=== PATIENT | female | born 1955 | race Caucasian/White ===

== ENCOUNTER 2021-06-04 14:42 | Day surgery (SDC) | payer MEDICARE, OTHER ==
[2021-05-30 09:32] LABS: ALBUMIN 3.9 G/DL (3.4-5.0); ANION GAP 6 (8-16); BLOOD UREA NITROGEN 16 MG/DL (7-18); BUN/CREATININE RATIO 20.8 (6.6-38.0); CALCIUM 9.7 MG/DL (8.5-10.1); CHLORIDE 100 MMOL/L (99-107); CREATININE 0.77 MG/DL (0.40-0.90); GLUCOSE 111 MG/DL (70-104); POTASSIUM 3.7 MMOL/L (3.5-5.1); SODIUM 136 MMOL/L (135-145); TOTAL CARBON DIOXIDE 30.3 MMOL/L (24-32); eGFR 75 ML/MIN
[2021-05-30 09:36] LABS: APTT 27 SECONDS (22-32)
[2021-05-30 09:40] LABS: BASOPHILS % (AUTO) 0.8 % (0-1); EOSINOPHILS # (AUTO) 0.1 X10'3 (0-0.9); EOSINOPHILS % (AUTO) 1.7 % (0-6); HEMATOCRIT 38.1 % (35.0-45.0); HEMOGLOBIN 12.9 g/dl (12.0-16.0); LYMPHOCYTES # (AUTO) 1.4 X10'3 (1.1-4.8); LYMPHOCYTES % (AUTO) 22.5 % (21-51); MEAN CORPUSCULAR HEMOGLOBIN 30.9 PG (27.0-31.0); MEAN CORPUSCULAR HGB CONC 33.8 g/dL (33.0-36.5); MEAN CORPUSCULAR VOLUME 91.4 FL (78-98); MEAN PLATELET VOLUME 7.7 FL (7.4-10.4); MONOCYTES # (AUTO) 0.6 X10'3 (0-0.9); MONOCYTES % (AUTO) 9.7 % (2-12); NEUTROPHILS % (AUTO) 65.3 % (42-75); PLATELET COUNT 235 X10'3 (140-440); RED BLOOD COUNT 4.17 X10'6 (4.20-5.60); RED CELL DISTRIBUTION WIDTH 12.9 % (11.5-14.5); WHITE BLOOD COUNT 6.2 X10'3 (4.5-11.0)
[~2021-06-04] VITALS: Ht 167.6 cm; Wt 82.7 kg
[2021-06-04 15:00] VITALS: BP 128/107
[2021-06-04] MEDS ORDERED: diphenhydrAMINE 25mg capsule PO PRN (15:00)
[2021-06-04] MEDS ORDERED: normal saline 1,000 ML IV SCH (15:00)
[2021-06-04] MEDS ORDERED: LORazepam 0.5 MG tablet PO PRN (15:00)
[2021-06-04] MEDS ORDERED: ATOR20TA66 PO (15:17)
[2021-06-04] MEDS ORDERED: ACET-890 PO (15:17)
[2021-06-04] MEDS ORDERED: AMLO10TA13 PO (15:17)
[2021-06-04] MEDS ORDERED: nitroGLYCERIN-Tridil 50MG/D5W 250 ML IV ONE (15:51)
[2021-06-04] MEDS ORDERED: verapamil 2.5 mg/ml inj IV ONE (15:51)
[2021-06-04] MEDS ORDERED: fentaNYL/PF 50MCG/1 ML 2ML syringe ONE (15:51)
[2021-06-04] MEDS ORDERED: midazolam 1 mg/ML 2ml injection ONE (15:51)
[2021-06-04] MEDS ORDERED: LIDOcaine 1% (10mg/ml)w/preservative injection 20ml MDV ONE (15:52)
[2021-06-04] MEDS ORDERED: iohexol 350MG/ML 100ml bottle IV ONE (15:52)
[2021-06-04] MEDS ORDERED: heparin 1,000unit/ml 10ml vial 10 ML ONE (15:52)
[2021-06-04 18:52] VITALS: BP 141/52
[2021-06-04 19:06] VITALS: BP 144/71
[2021-06-04 19:21] VITALS: BP 151/69
[2021-06-04 19:36] VITALS: BP 136/67
[2021-06-05 09:01] LABS: ISTAT Hct MIX 33 %PCV (35-48); ISTAT O2 SATURATION MIX VENOUS 73 % (60-80); ISTAT SOURCE BLNK
[2021-06-05 09:02] LABS: ISTAT HGB ART 11.2 g/dl (12.0-16.0); ISTAT Hct ART 33 %PCV (35-48); ISTAT O2 SATURATION ARTERIAL 97 % (95-98); ISTAT SOURCE BLNK
== END 2021-06-04 20:20 | disposition home or self-care (01) ==
LOC: SSTAY O 14:42
PROVIDERS: ATTEND Internal Medicine Interventional Cardiology
DX: I35.2 Nonrheumatic aortic (valve) stenosis with insufficiency (principal); I10 Essential (primary) hypertension; E78.5 Hyperlipidemia, unspecified; E87.1 Hypo-osmolality and hyponatremia; I65.23 Occlusion and stenosis of bilateral carotid arteries; E66.01 Morbid (severe) obesity due to excess calories; Z68.29 Body mass index [BMI] 29.0-29.9, adult; Z87.891 Personal history of nicotine dependence; Z88.8 Allergy status to other drugs, medicaments and biological substances; Z79.899 Other long term (current) drug therapy
CPT/HCPCS: 36415; 80048; 82803; 85014; 85025; 85610; 85730; 93005; 93456; 99152; 99153; C1751; C1769; C1894; J1644; J2250; J3010; J3490; Q0163; Q9967; A4620; A5120; A6258

== ENCOUNTER 2021-07-02 11:31 | Outpatient (CLI) | payer MEDICARE, OTHER ==
[~2021-07-02] VITALS: Ht 165.1 cm; Wt 81.6 kg
[~2021-07-02 11:31] MED LIST: ACET-890 PO; AMLO10TA13 PO; ATOR20TA66 PO
[2021-07-02 12:00] LABS: BASOPHILS # (AUTO) 0.1 X10'3 (0-0.2); BASOPHILS % (AUTO) 0.9 % (0-1); EOSINOPHILS # (AUTO) 0.2 X10'3 (0-0.9); EOSINOPHILS % (AUTO) 2.2 % (0-6); HEMATOCRIT 36.8 % (35.0-45.0); HEMOGLOBIN 12.4 g/dl (12.0-16.0); LYMPHOCYTES # (AUTO) 1.4 X10'3 (1.1-4.8); LYMPHOCYTES % (AUTO) 20.7 % (21-51); MEAN CORPUSCULAR HEMOGLOBIN 30.6 PG (27.0-31.0); MEAN CORPUSCULAR HGB CONC 33.8 g/dL (33.0-36.5); MEAN CORPUSCULAR VOLUME 90.4 FL (78-98); MEAN PLATELET VOLUME 6.8 FL (7.4-10.4); MONOCYTES # (AUTO) 0.6 X10'3 (0-0.9); MONOCYTES % (AUTO) 8.2 % (2-12); NEUTROPHILS # (AUTO) 4.6 X10'3 (1.8-7.7); PLATELET COUNT 245 X10'3 (140-440); RED BLOOD COUNT 4.07 X10'6 (4.20-5.60); RED CELL DISTRIBUTION WIDTH 13.6 % (11.5-14.5); WHITE BLOOD COUNT 6.8 X10'3 (4.5-11.0)
[2021-07-02 12:18] LABS: ALANINE AMINOTRANSFERASE 31 U/L (12-78); ALBUMIN 3.6 G/DL (3.4-5.0); ALBUMIN/GLOBULIN RATIO 0.9 (1.1-1.5); ALKALINE PHOSPHATASE 110 IU/L (46-116); ANION GAP 10 (8-16); ASPARTATE AMINO TRANSFERASE 19 U/L (10-37); BILIRUBIN,TOTAL 0.5 MG/DL (0.1-1.0); BLOOD UREA NITROGEN 16 MG/DL (7-18); BUN/CREATININE RATIO 23.5 (6.6-38.0); CALCIUM 9.3 MG/DL (8.5-10.1); CHLORIDE 102 MMOL/L (99-107); CREATININE 0.68 MG/DL (0.40-0.90); GLUCOSE 95 MG/DL (70-104); POTASSIUM 3.7 MMOL/L (3.5-5.1); SODIUM 139 MMOL/L (135-145); TOTAL CARBON DIOXIDE 27.3 MMOL/L (24-32); TOTAL PROTEIN 7.4 G/DL (6.4-8.2); eGFR 87 ML/MIN
[2021-07-02 12:22] LABS: APTT 28 SECONDS (22-32)
[2021-07-02] MEDS ORDERED: IODIXANOL 320 MG/ML INFUS..BTL 50ML IV ONE (13:01)
[2021-07-02] MEDS ORDERED: IODIXANOL 320 MG/ML INFUS..BTL 100ML IV ONE (13:01)
[2021-07-02] MEDS ORDERED: albuterol 2.5 MG/3 ML nebule NEB PRN (14:15)
[2021-07-02 14:17] LABS: ABG BASE EXCESS 0.9 mmol/L (-2.0-2.0); ABG HCO3 25.6 mmol/L (22.0-26.0); ABG PCO2 (T) 41.1 mmHg (32.0-45.0); ABG PO2 (T) 78.9 mmHg (75.0-100.0); ALLEN'S TEST POSITIVE; FCOHb 0.7 % (0.0-3.9); FMetHb 0.2 % (0.0-1.5); FO2Hb 95.1 % (94-97); TOTAL HEMOGLOBIN 13.4 G/dl (12.0-16.0)
== END 2021-07-02 23:59 | disposition home or self-care (01) ==
LOC: RAD 11:31
PROVIDERS: ATTEND Internal Medicine Cardiovascular Disease
DX: R94.2 Abnormal results of pulmonary function studies (principal); I70.0 Atherosclerosis of aorta; I35.0 Nonrheumatic aortic (valve) stenosis; M47.819 Spondylosis without myelopathy or radiculopathy, site unspecified; R06.02 Shortness of breath; I65.29 Occlusion and stenosis of unspecified carotid artery; Z20.822 Contact with and (suspected) exposure to COVID-19
CPT/HCPCS: 36415; 36600; 71046; 71275; 74174; 80053; 82803; 85018; 85025; 85610; 85730; 87635; 94060; 94727; 94729; 94760; C9803; Q9967

== ENCOUNTER 2021-08-07 08:35 | Inpatient (IN) | payer MEDICARE, OTHER ==
[2021-08-01 11:16] LABS: BASOPHILS # (AUTO) 0.1 X10'3 (0-0.2); BASOPHILS % (AUTO) 0.8 % (0-1); EOSINOPHILS # (AUTO) 0.1 X10'3 (0-0.9); EOSINOPHILS % (AUTO) 1.8 % (0-6); LYMPHOCYTES # (AUTO) 1.5 X10'3 (1.1-4.8); LYMPHOCYTES % (AUTO) 20.8 % (21-51); MEAN CORPUSCULAR HEMOGLOBIN 30.5 PG (27.0-31.0); MEAN CORPUSCULAR HGB CONC 33.3 g/dL (33.0-36.5); MEAN CORPUSCULAR VOLUME 91.4 FL (78-98); MEAN PLATELET VOLUME 7.2 FL (7.4-10.4); MONOCYTES # (AUTO) 0.6 X10'3 (0-0.9); MONOCYTES % (AUTO) 8.5 % (2-12); NEUTROPHILS # (AUTO) 4.8 X10'3 (1.8-7.7); NEUTROPHILS % (AUTO) 68.1 % (42-75); PRE OP HEMATOCRIT 38.3 % (35.0-45.0); PRE OP HEMOGLOBIN 12.8 g/dL (12.0-16.0); PRE OP PLATELET COUNT 230 X10'3 (140-440); RED BLOOD COUNT 4.19 X10'6 (4.20-5.60); RED CELL DISTRIBUTION WIDTH 13.6 % (11.5-14.5)
[2021-08-01 11:21] LABS: CLARITY,URINE CLEAR (Clear); COLOR,URINE STRAW (Yellow); GLUCOSE, URINE NEGATIVE (Neg); KETONES,URINE NEGATIVE (Neg); LEUKOCYTE ESTERASE ,URINE NEGATIVE (Neg); NITRITES, URINE NEGATIVE (Neg); OCCULT BLOOD,URINE NEGATIVE (Neg); PROTEIN,URINE NEGATIVE (Neg); UA COLLECTION TYPE CLN CATCH MIDSTREAM; UROBILINOGEN,URINE 0.2 E.U/dL (0.2-1.0)
[2021-08-01 11:39] LABS: PRE OP PROTIME 10.2 SECONDS (9.0-12.0)
[2021-08-01 11:54] LABS: ALBUMIN 3.8 G/DL (3.4-5.0); ALKALINE PHOSPHATASE 108 IU/L (46-116); BLOOD UREA NITROGEN 16 MG/DL (7-18); BUN/CREATININE RATIO 20.3 (6.6-38.0); CALCIUM 9.6 MG/DL (8.5-10.1); CHLORIDE 104 MMOL/L (99-107); CREATININE 0.79 MG/DL (0.40-0.90); PRE OP ALT 27 U/L (30-65); PRE OP ANION GAP 8 (8-16); PRE OP AST 28 U/L (10-37); PRE OP BILIRUB, TOTAL 0.6 MG/DL (0.0-1.0); PRE OP GLUCOSE 106 MG/DL (70-104); PRE OP SODIUM 141 MMOL/L (135-145); TOTAL CARBON DIOXIDE 28.6 MMOL/L (24-32); TOTAL PROTEIN 7.5 G/DL (6.4-8.2); eGFR 73 ML/MIN
[~2021-08-07] VITALS: Ht 167.6 cm; Wt 87.3 kg
[2021-08-07] VITALS (12 sets, daily range): BP systolic 134–172; BP diastolic 47–91
[~2021-08-07 08:35] MED LIST changes: -ACET-890 PO; +PHENYLephrine 100 MG in NS 250ml IV soln IV SCH; +PHENYLephrine 50 MG in NS 250ml IV soln IV SCH; +aspirin 325mg tablet PO ONE; +cefazolin/dext.iso 2gm/100ml 100 ML IV ONE; +famotidine 20mg tablet PO ONE; +nitroPRUSSIDE (NIPRIDE) (200MCG/ML) 100ML Drip IV SCH; +ondansetron/PF 4mg/2ml inj IV PRN; +ringers solution, lacted 1,000 ML IV SCH
[2021-08-07] MEDS ORDERED: protamine sulfate 10mg/ml inj. ONE (11:10)
[2021-08-07] MEDS ORDERED: LIDOCAINE 1% w/preservative (10 MG/ML) inj. 10mL VIAL ONE (12:32)
[2021-08-07] MEDS ORDERED: heparin 1,000 UNITS/NS 500ml 1,500 ML ONE (12:32)
[2021-08-07] MEDS ORDERED: iohexol 350 MG/ML 50ML vial IV ONE (12:32)
[2021-08-07] MEDS ORDERED: iohexol 350MG/ML 100ml bottle IV ONE (12:32)
[2021-08-07] MEDS ORDERED: heparin 1,000 UNITS/NS 500ml 500 ML ONE (12:40)
[2021-08-07] MEDS ORDERED: midazolam 1 mg/ML 2ml injection ONE (13:02)
[2021-08-07] MEDS ORDERED: fentaNYL/PF 50MCG/1 ML 2ML syringe ONE (13:02)
[2021-08-07] MEDS ORDERED: propofol inj 20 ML IV ONE (13:56)
[2021-08-07] MEDS ORDERED: heparin 1,000unit/ml 10ml vial 10 ML ONE (14:21)
[2021-08-07] MEDS ORDERED: ondansetron/PF 4mg/2ml inj IV PRN ×2 (14:25→14:40)
[2021-08-07] MEDS ORDERED: labetalol 20mg/4ml (5mg/ml) syringe IV PRN (14:25)
[2021-08-07] MEDS ORDERED: acetaminophen 325mg tablet PO PRN (14:25)
[2021-08-07] MEDS ORDERED: diphenhydrAMINE 25mg capsule PO PRN (14:25)
[2021-08-07] MEDS ORDERED: docusate sod 100mg capsule PO PRN (14:25)
[2021-08-07] MEDS: normal saline 1000ml 1,000 ML IV SCH (14:25)
[2021-08-07] MEDS ORDERED: HYDROcodone/acetaminophen 5mg/325mg tablet PO PRN (14:25)
[2021-08-07] MEDS ORDERED: pantoprazole 40mg Tablet.DR PO PRN (14:25)
[2021-08-07] MEDS ORDERED: proCHLORperazine 10 MG/2 ml inj IV PRN ×2 (14:25→14:40)
[2021-08-07] MEDS ORDERED: ALPRAZolam 0.25mg tablet PO PRN (14:25)
--- NOTE | 2021-08-07 14:28 | NUR ---
Received from OR via SURGICAL BED , accompanied by Anesthesiologist KADE and report given by Anesthesiolgist. PATIENT WITH 18G PIV IN LEFT UE WELL AN ART LINE. RIGHT UE WITH 20G PIV IN UE. + DPS BILATERALLY. BOTH STRONG. INGUINAL DRESSINGS BOTH CDI AND ARE SOFT AND SUPPLE. 10L MASK ON WITH 100% SATRUATIONS. Addendum: 08/07/21 at 1446 by Tuan Bray RN, RN Amended: Links added.
[2021-08-07] MEDS ORDERED: meperidine/PF 25mg/ml syringe IV PRN ×3 (14:40)
[2021-08-07] MEDS ORDERED: morphine 4 MG/ML inj SYRINge IV PRN (14:40)
[2021-08-07] MEDS ORDERED: morphine 2 MG/ML inj. syringe IV PRN (14:40)
[2021-08-07] MEDS ORDERED: ringers solution, lacted 1,000 ML IV SCH (14:40)
--- NOTE | 2021-08-07 15:21 | NUR ---
REASSESSED PEDAL PULSES- STRONG BILATERALLY DORSALIS PEDIS' REASSESSED INGUINAL SITES- ALL CDI AND SOFT AND SUPPLE TO TOUCH. ALL SAME UPON ARRIVAL FROM 0R Addendum: 08/07/21 at 1523 by Tuan Nance - SANJANA ALLAN Amended: Links added.
[2021-08-07] MEDS: hydrALAZINE 20mg/ml inj. IV PRN ×2 (15:26→16:54)
--- NOTE | 2021-08-07 15:38 | NUR ---
PATIENT HAS MET ALL CRITERIA FOR TRANSFER TO THE [facility]. VSS. DRESSINGS INTACT. BED LOW, CALL LIGHT PRESENT AND 2 RAILS UP. RN PRESENT TO ACCEPT CARE OF PATIENT AND REPORT HAS BEEN CALLED. PALL QUESTIONS ANSWERED TO ACCEPTING SANJANA PINK. ONE BAG OF BELONGINGS SENT WITH PATIENT. Addendum: 08/07/21 at 1544 by Tuan Nance - SANJANA ALLAN Amended: Links added.
[2021-08-07] MEDS: sod chloride 0.9% 10ml flush syringe IV SCH (16:00)
[2021-08-07] MEDS: ceFAZolin 1GM/D5W- ADD-VANTAGE 50 ML IV SCH (17:44)
--- NOTE | 2021-08-07 17:52 | NUR ---
Patient was having high blood pressure. Did bladder scan it came back 880mL, called he said to straight cath pt., we did she put out 1100mL of urine. Patient blood pressure was still 185/66, GAVE labetalol. BP came down a little to 177/60
[2021-08-07] MEDS: amLODIPine 5mg tablet PO SCH (18:00)
[2021-08-07] MEDS ORDERED: morphine 2 MG/ML inj. syringe IV ONE (18:00)
[2021-08-07] MEDS ORDERED: vancomycin/NS 1 GM ADD-VANTAGE 250 ML IV SCH (20:00)
[2021-08-08] MEDS: ceFAZolin 1GM/D5W- ADD-VANTAGE 50 ML IV SCH ×2 (00:21→07:39)
[2021-08-08] MEDS: sod chloride 0.9% 10ml flush syringe IV SCH (00:21)
[2021-08-08] MEDS: normal saline 1000ml 1,000 ML IV SCH ×2 (00:21→07:39)
[2021-08-08 01:23] VITALS: BP 103/35
[2021-08-08 02:00] VITALS: BP 109/42
[2021-08-08 06:00] VITALS: BP 139/54
--- NOTE | 2021-08-08 06:11 | NUR ---
Problems reprioritized. Patient report given, questions answered & plan of care reviewed with Libby ALLAN.
[2021-08-08 07:14] LABS: BASOPHILS % (AUTO) 0.5 % (0-1); EOSINOPHILS % (AUTO) 0.4 % (0-6); HEMATOCRIT 35.3 % (35.0-45.0); HEMOGLOBIN 11.9 g/dl (12.0-16.0); LYMPHOCYTES # (AUTO) 0.8 X10'3 (1.1-4.8); LYMPHOCYTES % (AUTO) 10.1 % (21-51); MEAN CORPUSCULAR HEMOGLOBIN 30.5 PG (27.0-31.0); MEAN CORPUSCULAR HGB CONC 33.6 g/dL (33.0-36.5); MEAN CORPUSCULAR VOLUME 90.8 FL (78-98); MEAN PLATELET VOLUME 7.8 FL (7.4-10.4); MONOCYTES # (AUTO) 0.7 X10'3 (0-0.9); MONOCYTES % (AUTO) 8.4 % (2-12); NEUTROPHILS # (AUTO) 6.6 X10'3 (1.8-7.7); NEUTROPHILS % (AUTO) 80.6 % (42-75); PLATELET COUNT 175 X10'3 (140-440); RED BLOOD COUNT 3.89 X10'6 (4.20-5.60); RED CELL DISTRIBUTION WIDTH 13.6 % (11.5-14.5); WHITE BLOOD COUNT 8.2 X10'3 (4.5-11.0)
[2021-08-08 07:36] LABS: ALANINE AMINOTRANSFERASE 22 U/L (12-78); ALBUMIN 3.3 G/DL (3.4-5.0); ALKALINE PHOSPHATASE 83 IU/L (46-116); ANION GAP 7 (8-16); ASPARTATE AMINO TRANSFERASE 26 U/L (10-37); BILIRUBIN,TOTAL 0.8 MG/DL (0.1-1.0); BLOOD UREA NITROGEN 19 MG/DL (7-18); BUN/CREATININE RATIO 27.9 (6.6-38.0); CALCIUM 8.9 MG/DL (8.5-10.1); CHLORIDE 105 MMOL/L (99-107); CREATININE 0.68 MG/DL (0.40-0.90); GLUCOSE 94 MG/DL (70-104); MAGNESIUM 1.5 MG/DL (1.5-2.4); POTASSIUM 3.5 MMOL/L (3.5-5.1); SODIUM 136 MMOL/L (135-145); TOTAL CARBON DIOXIDE 24.2 MMOL/L (24-32); TOTAL PROTEIN 6.6 G/DL (6.4-8.2); eGFR 87 ML/MIN
[2021-08-08] MEDS: amLODIPine 5mg tablet PO SCH (07:41)
[2021-08-08] MEDS ORDERED: aspirin 81mg, enteric-coated 1 TAB TABLET.DR PO SCH (08:00)
[2021-08-08] MEDS ORDERED: amLODIPine 5mg tablet PO SCH (08:00)
[2021-08-08] MEDS ORDERED: atorvastatin 20mg tablet PO SCH (08:00)
[2021-08-08] MEDS ORDERED: ASPI-1071 PO (08:30)
[2021-08-08 11:00] VITALS: BP 137/58
--- NOTE | 2021-08-08 14:47 | NUR ---
IV d/c'd removed tele, went over discharge packet and answered all questions.
== END 2021-08-08 14:22 | disposition home or self-care (01) | DRG 266 ==
LOC: PAS IN 08:35 → PCU 3S 15:53
PROVIDERS: ADMIT Internal Medicine Cardiovascular Disease; ATTEND Internal Medicine Cardiovascular Disease
PROC: 03HY32Z Insertion of Monitoring Device into Upper Artery, Percutaneous Approach (ICD-10-PCS; 2021-08-07)
PROC: B41D1ZZ Fluoroscopy of Aorta and Bilateral Lower Extremity Arteries using Low Osmolar Contrast (ICD-10-PCS; 2021-08-07)
PROC: X2RF332 Replacement of Aortic Valve using Zooplastic Tissue, Rapid Deployment Technique, Percutaneous Approach, New Technology Group 2 (ICD-10-PCS; principal; 2021-08-07 13:00)
DX: I35.0 Nonrheumatic aortic (valve) stenosis (principal); I50.33 Acute on chronic diastolic (congestive) heart failure; I11.0 Hypertensive heart disease with heart failure; E78.5 Hyperlipidemia, unspecified; Z20.822 Contact with and (suspected) exposure to COVID-19; I65.29 Occlusion and stenosis of unspecified carotid artery
CPT/HCPCS: 33361; 36415; 71045; 80053; 81003; 82948; 83735; 83880; 85025; 85347; 85610; 85730; 86885; 86900; 86901; 86920; 87081; 93005; 93308; A4618; A6258; A6449; C1756; C1760; C1769; C1894; G0378; J0360; J0690; J1644; J2250; J2370; J2704; J2720; J3010; J3370; J3490; J7030; J7040; J7050; J7120; Q9967; U0003; U0005